=== PATIENT | female | born 1960 | race Caucasian/White ===

== ENCOUNTER 2019-09-02 19:34 | Emergency (ER) | payer SELFPAY ==
[~2019-09-02] VITALS: Ht 160 cm; Wt 84.8 kg
[2019-09-02 19:47] VITALS: BP 123/79
--- NOTE | 2019-09-02 20:27 | NUR ---
COVID SWAB COLLECTED AND TAKEN TO LAB.
--- NOTE | 2019-09-02 20:30 | NUR ---
PT REFUSED CHEST XR. SHANDA BLANTON NOTIFIED.
--- NOTE | 2019-09-02 20:35 | NUR ---
Nicole couch in ED - 09/02/19 at 2043 by [facility] PT ELOPED FROM FACILITY. LYLED NOTIFIED.
--- NOTE | 2019-09-02 20:43 | NUR ---
PT NOW ACCPETING CHEST XR. SHANDA BLANTON NOTIFIED.
--- NOTE | 2019-09-02 20:50 | NUR ---
PT REFUSED CHEST XR AGAIN. SHANDA BLANTON NOTIFIED.
--- NOTE | 2019-09-02 21:17 | NUR ---
Patient discharged with v/s stable. Written and verbal after care instructions given and explained. Patient verbalized understanding. Ambulatory with steady gait. All questions addressed prior to discharge. Advised to follow up with PMD.
== END 2019-09-02 21:17 | disposition home or self-care (01) ==
LOC: MED 19:34 → EEVIPCON 19:34 → MED 21:17
DX: U07.1 COVID-19 (principal)
CPT/HCPCS: 99283; U0003